=== PATIENT | male | born 1980 | race Caucasian/White ===

== ENCOUNTER 2016-07-28 15:22 | Emergency (ER) | payer SELFPAY ==
--- NOTE | 2016-07-28 17:40 | ED CLINICAL REPORT ---
Clinical Report - Physicians/Mid Levels [facility] [address] [place] [address] 07/28/2016 15:24 [id number] Arrived- By private vehicle. Historian- patient. HISTORY OF PRESENT ILLNESS Chief Complaint: fatigue. This started 1 month ago and is still present but is better now. It was gradual in onset and has been constant but is not gone now. The illness is described as moderate. The patient has had a cough (improved). No fever or chills. (generalized fatigue, decreased appetite, generalized weakness). Additional history - No known contact with a sick individual. Similar symptoms previously: None. Recent medical care: Not recently seen/assessed. REVIEW OF SYSTEMS The patient has had a headache. No pedal edema or calf pain. All systems otherwise negative, except as recorded above. PAST HISTORY See nurses notes. SOCIAL HISTORY Smoker- current status unknown. No alcohol use or drug use. Is a local resident. ADDITIONAL NOTES The nursing notes have been reviewed. PHYSICAL EXAM Vital Signs: 07/28/2016 15:33 BP: 133/96. HR: 113. RR: 18. O2 saturation: 96%. Temp: 97.6 F. Blood pressure normal. Oxygen saturation normal. Appearance: Alert. No acute distress. Eyes: Pupils equal, round and reactive to light. Eyes normal inspection. ENT: Ears normal. Nose normal. Pharynx normal. Uvula midline. Neck: Normal inspection. Neck supple. No meningeal signs. CVS: Normal heart rate and rhythm. Heart sounds normal. Pulses normal. Respiratory: No respiratory distress. Breath sounds normal. No rales, rhonchi, wheezes or stridor. Abdomen: Soft and nontender. No organomegaly. Back: Normal inspection. Skin: Skin warm and dry. Normal skin color. No rash. Normal skin turgor. Extremities: Extremities exhibit normal ROM. No lower extremity edema. Neuro: Oriented X 3. No motor deficit. No sensory deficit. LABS, X-RAYS, AND EKG Laboratory Tests: CBC w Diff: (RD: 07/28/2016 16:05) ( MsgRcvd 07/28/2016 16:21) Final results Test Result Flag Units (Reference) WHITE BLOOD COUNT 7.4 K/uL (4.5-11.5) RED BLOOD COUNT 5.01 M/uL (4.50-5.90) HEMOGLOBIN 15.1 gm/dL (13.5-17.5) HEMATOCRIT 44.8 % (41.0-53.0) MEAN CELL VOLUME 89 fL (80-100) MEAN CORPUSCULAR HGB 30 pg (26-34) MEAN CORPUSCULAR HGB CONC 34 g/dL (31-37) RED CELL DISTRIBUTION WIDTH 12.0 % (11.6-14.8) PLATELET COUNT 285 K/uL (150-400) NEUTROPHIL % 69.2 % (50-75) LYMPH % 19.4 L % (25-40) MONO % 10.1 % (3-14) EOSINOPHIL % 0.9 % (0-4) BASOPHIL % 0.4 % (0-2) CMP: (RD: 07/28/2016 16:05) ( MsgRcvd 07/28/2016 16:43) Final results Test Result Flag Units (Reference) GLUCOSE 100 mg/dL (70-110) BUN 5 L mg/dL (7-18) CREATININE 0.6 mg/dL (0.6-1.3) Estimated GFR >60 mL/min Estimated GFR- >60 mL/min Note: Persistent reduction over 3 months in eGFR<60 mL/min/1.73 m2 defines CKD. Patients with eGFR values>=60 mL/min/1.73 m2 may also have CKD if evidence ofpersistent proteinuria. Additional information may be foundat www.kidney.org. SODIUM 139 mmol/L (136-145) POTASSIUM 3.3 L mmol/L (3.5-5.1) CHLORIDE 103 mmol/L (98-107) CARBON DIOXIDE 25 mmol/L (21-32) CALCIUM 8.9 mg/dL (8.5-10.1) TOTAL PROTEIN 8.0 g/dL (6.4-8.2) ALBUMIN 4.0 g/dL (3.3-5.0) BILIRUBIN, TOTAL 0.5 mg/dL (0.0-1.0) ALKALINE PHOSPHATASE 90 U/L (46-116) AST (SGOT) 78 H U/L (15-37) ALT (SGPT) 255 H U/L (12-78) THYROID STIMULATING HORMONE 0.575 uIU/mL (0.34-3.74) . PROGRESS AND PROCEDURES Course of Care: the patient is a 36-year-old male with no past medical history presenting for evaluation of several medical concerns. Had long discussion with patient in regards to his workup here in the emergency Department incapabilities here. Had discussion with patient in regards to imaging and laboratory studies. Patient declined offers for imaging secondary to cost. Explained to patient that I was here for his medical concerns only and would happily order the test if he was agreeable to them. Patient reports that his symptoms of cough have essentially gone away at this point in time and does not feel that he wants them at this point in time. Patient was agreeable to laboratory studies. Discussed with patient workup which she was agreeable to. Patient otherwise is nontoxic in appearance. do not the patient has subarachnoid hemorrhage, increased intracranial pressure, or meningitis. Symptoms have been ongoing for about a month. Differential diagnosis includes hypoglycemia, anemia, hypothyroidism the patient's laboratory studies were remarkable for elevation in liver enzymes that was mild in nature. Patient could have been exposed to a virus that is been causing liver injury. Expressed my concern for patient's laboratory studies and need for outpatient follow-up. Patient is agreeable to following up with his liver enzymes. No other abnormalities noted. Hemoglobin and hematocrit are otherwise unremarkable. Thyroid is also noted to be negative. I discussed the patient workup, diagnosis, home care, follow-up, and return precautions. All questions answered. The patient expressed understanding of these instructions and was agreeable to them. Disposition: Discharged. Condition: good. CLINICAL IMPRESSION 07/28/2016 15:33 BP: 133/96. HR: 113. RR: 18. O2 saturation: 96%. Temp: 97.6 F. Blood pressure normal. Oxygen saturation normal. Acute viral syndrome Hypokalemia (acute mild). acute transaminitis, mild. INSTRUCTIONS (Avoid products containing Tylenol.). Warnings: Further evaluation is necessary in order to recheck abnormal lab (Liver enzymes need to be checked). It is very important to follow up with a physician. GENERAL WARNINGS: Return or contact your physician immediately if your condition worsens or changes unexpectedly, if not improving as expected, or if other problems arise. Specifically return if pain, vomiting, bleeding, breathing difficulty or fever. Your Current Medications: CONTINUE TAKING THE FOLLOWING MEDICATIONS: None*. Prescription Medications: Zofran 4 mg: take 1 orally every 8 hours as needed for nausea and vomiting. Dispense ten (10). No refill. Substitution is permissible. Follow-up: Return to the emergency department as needed. Follow up with your doctor in three days. Reason for referral: recheck today's concerns. Summary of care provided to patient via paper. Screening today revealed the patient's blood pressure to be in the normal range. The patient should follow up with a primary care provider for blood pressure management. Understanding of the discharge instructions verbalized by patient. (Electronically signed by Darshan Mccarty Dr. 07/31/2016 18:05)
--- NOTE | 2016-07-28 17:40 | ED ORDER SUMMARY ---
..... Patient: NOEMI LUCIANO OrderSheet [facility] VisitID: [id number] [address] [place] [address] 36y, M Registration Date/Time: 07/28/2016 ORDER SHEET Weight: 87.0 kg (stated) Allergies: No Known Drug Allergy GENERAL ORDERS: CBC w Diff Urgent (15:53 07/28/2016 Angel Carbajal) (Ack 15:59 LNations ER Tech1) CMP Urgent (15:53 07/28/2016 Angel Carbajal) (Ack 15:59 LNations ER Tech1) TSH Urgent (15:53 07/28/2016 Angel Carbajal) (Ack 15:59 LNations ER Tech1) MEDICATION ORDERS: IV FLUIDS: ORDER SHEET NOTES: [Electronically signed by Bonilla Ochoa R.N. (17:55 07/28/2016)] [Electronically signed by Darshan Mccarty Dr. (18:05 07/31/2016)] [Electronically locked/signed by Bonilla Ochoa R.N. (17:55 07/28/2016)]
--- NOTE | 2016-07-28 17:40 | ED NURSING NOTES ---
Clinical Report - Nurses [facility] [address] [place] [address] 07/28/2016 15:24 [id number] TRI[facility] Triage time 15:33 Jul 28 2016. Acuity: LEVEL 3. Chief Complaint: FEVER, CHILLS, MUSCLE ACHES, HEADACHE, WEAKNESS, NAUSEA and DIARRHEA. --15:37 Bonilla Ochoa R.N. 15:33 07/28/16. BP: 133/96. HR: 113. RR: 18. O2 saturation: 96%. Temp: 97.6 F. Pain level now 0/10. --15:37 Bonilla Ochoa R.N. Weight: 87 kg stated. Height/Length: 65 inches Per Patient. BMI: 32. --15:36 Bonilla Ochoa R.N. Medications None. --15:36 Bonilla Ochoa R.N. Allergies No Known Drug Allergy. --15:36 Bonilla Ochoa R.N. History Arrived by private vehicle. ( Pt "self diagnosed "with flu since the . Pt is reporting multiple symptoms worse being lack of appetite). SOCIAL HX: Never smoker. No alcohol use or drug use. --15:37 Bonilla Ochoa R.N. Interventions ID band on patient. To treatment room. --15:37 Bonilla Ochoa R.N. PHYSICAL ASSESSMENT GENERAL / NEURO / PSYCH: Alert. Oriented X 4. Appears in no acute distress. HEENT: Pupils equal, round and reactive to light. No facial asymmetry noted. Mucous membranes are pink. RESPIRATORY: Respirations not labored. Chest nontender. Breath sounds within normal limits. CVS: Pulses within normal limits. GI / : Abdomen soft. SKIN: Skin is warm and dry. --15:37 Bonilla Ochoa R.N. NURSING PROGRESS NOTES Oxygen not administered. Pulse oximeter placed on patient. Patient not gowned. Call light placed in reach. Side rails up x 1. Bed placed in lowest position. --15:37 Bonilla Ochoa R.N. DISPOSITION / DISCHARGE Departure time: 1750. No learning barriers present. Discharge instructions provided and reviewed with the patient. Reviewed warnings. Reviewed medication(s). Treatments reviewed. Reviewed referrals. Patient verbalized understanding. Written instructions provided in Slovak. The patient was discharged by the physician. He was discharged home. He left the Emergency Department ambulatory and via private vehicle. Patient driving. --17:51 Bonilla Ochoa R.N. 17:50 07/28/16. BP: 128/85. HR: 108. RR: 18. O2 saturation: 99%. Temp: 98.6 F. Pain level now 0/10. --17:51 Bonilla Ochoa R.N. Locked/Released at 07/28/2016 17:55 by Bonilla Ochoa R.N.
--- NOTE | 2016-07-28 17:40 | ED ORDER SUMMARY ---
..... Patient: NOEMI LUCIANO OrderSheet [facility] VisitID: [id number] [address] [place] [address] 36y, M Registration Date/Time: 07/28/2016 ORDER SHEET Weight: 87.0 kg (stated) Allergies: No Known Drug Allergy GENERAL ORDERS: CBC w Diff Urgent (15:53 07/28/2016 Angel Carbajal) (Ack 15:59 LNations ER Tech1) CMP Urgent (15:53 07/28/2016 Angel Carbajal) (Ack 15:59 LNations ER Tech1) TSH Urgent (15:53 07/28/2016 Angel Carbajal) (Ack 15:59 LNations ER Tech1) MEDICATION ORDERS: IV FLUIDS: ORDER SHEET NOTES: [Electronically signed by Bonilla Ochoa R.N. (17:55 07/28/2016)] [Electronically signed by Darshan Mccarty Dr. (18:05 07/31/2016)] [Electronically locked/signed by Bonilla Ochoa R.N. (17:55 07/28/2016)]
--- NOTE | 2016-07-28 17:40 | ED NURSING NOTES ---
Clinical Report - Nurses [facility] [address] [place] [address] 07/28/2016 15:24 [id number] TRIAGE Triage time 15:33 Jul 28 2016. Acuity: LEVEL 3. Chief Complaint: FEVER, CHILLS, MUSCLE ACHES, HEADACHE, WEAKNESS, NAUSEA and DIARRHEA. --15:37 Bonilla Ochoa R.N. 15:33 07/28/16. BP: 133/96. HR: 113. RR: 18. O2 saturation: 96%. Temp: 97.6 F. Pain level now 0/10. --15:37 Bonilla Ochoa R.N. Weight: 87 kg stated. Height/Length: 65 inches Per Patient. BMI: 32. --15:36 Bonilla Ochoa R.N. Medications None. --15:36 Bonilla Ochoa R.N. Allergies No Known Drug Allergy. --15:36 Bonilla Ochoa R.N. History Arrived by private vehicle. ( Pt "self diagnosed "with flu since the . Pt is reporting multiple symptoms worse being lack of appetite). SOCIAL HX: Never smoker. No alcohol use or drug use. --15:37 Bonilla Ochoa R.N. Interventions ID band on patient. To treatment room. --15:37 Bonilla Ochoa R.N. PHYSICAL ASSESSMENT GENERAL / NEURO / PSYCH: Alert. Oriented X 4. Appears in no acute distress. HEENT: Pupils equal, round and reactive to light. No facial asymmetry noted. Mucous membranes are pink. RESPIRATORY: Respirations not labored. Chest nontender. Breath sounds within normal limits. CVS: Pulses within normal limits. GI / : Abdomen soft. SKIN: Skin is warm and dry. --15:37 Bonilla Ochoa R.N. NURSING PROGRESS NOTES Oxygen not administered. Pulse oximeter placed on patient. Patient not gowned. Call light placed in reach. Side rails up x 1. Bed placed in lowest position. --15:37 Bonilla Ochoa R.N. DISPOSITION / DISCHARGE Departure time: 1750. No learning barriers present. Discharge instructions provided and reviewed with the patient. Reviewed warnings. Reviewed medication(s). Treatments reviewed. Reviewed referrals. Patient verbalized understanding. Written instructions provided in Greenlandic. The patient was discharged by the physician. He was discharged home. He left the Emergency Department ambulatory and via private vehicle. Patient driving. --17:51 Bonilla Ochoa R.N. 17:50 07/28/16. BP: 128/85. HR: 108. RR: 18. O2 saturation: 99%. Temp: 98.6 F. Pain level now 0/10. --17:51 Bonilla Ochoa R.N. Locked/Released at 07/28/2016 17:55 by Bonilla Ochoa R.N.
--- NOTE | 2016-07-31 18:05 | ED DISCHARGE INSTRUCTIONS ---
Patient: NOEMI LUCIANO General Instructions [facility] VisitID: [id number] [place] [address] 36y, M Registration Date/Time: 07/28/2016 07/28/2016 15:33 BP: 133/96. HR: 113. RR: 18. O2 saturation: 96%. Temp: 97.6 F. Blood pressure normal. Oxygen saturation normal. Acute viral syndrome Hypokalemia (acute mild). acute transaminitis, mild. INSTRUCTIONS (Avoid products containing Tylenol.). Warnings: Further evaluation is necessary in order to recheck abnormal lab (Liver enzymes need to be checked). It is very important to follow up with a physician. GENERAL WARNINGS: Return or contact your physician immediately if your condition worsens or changes unexpectedly, if not improving as expected, or if other problems arise. Specifically return if pain, vomiting, bleeding, breathing difficulty or fever. Your Current Medications: CONTINUE TAKING THE FOLLOWING MEDICATIONS: None*. Prescription Medications: Zofran 4 mg: take 1 orally every 8 hours as needed for nausea and vomiting. Dispense ten (10). No refill. Substitution is permissible. Follow-up: Return to the emergency department as needed. Follow up with your doctor in three days. Reason for referral: recheck today's concerns. Summary of care provided to patient via paper. Screening today revealed the patient's blood pressure to be in the normal range. The patient should follow up with a primary care provider for blood pressure management. Understanding of the discharge instructions verbalized by patient. ADDITIONAL INFORMATION Viral Syndrome (Adult) A viral illness may cause a number of symptoms. The symptoms depend on the part of the body that the virus affects. If it settles in the nose, throat, and lungs, it may cause cough, sore throat, congestion, and sometimes headache. If it settles in the stomach and intestinal tract, it may cause vomiting and diarrhea. Sometimes it causes vague symptoms like "aching all over," feeling tired, loss of appetite, or fever. A viral illness usually lasts1 to 2 weeks, but sometimes it lasts longer. In some cases, a more serious infection can look like a viral syndrome in the first few days of the illness. You may need anotherexam and additional teststo know the difference.Watch for the warning signs listed below. Home care Follow these guidelines for taking care of yourself at home: If symptoms are severe, rest at home for the first 2 to 3 days. Stay away from cigarette smoke - both your smoke and the smoke from others. You may useacetaminophen or ibuprofen for fever, muscle aching, and headache, unless another medicine was prescribed for this.If you have chronic liver or kidney disease or ever had a stomach ulcer or GI bleeding, talk with your doctor before using these medicinesNo one who is younger than 18 and ill with a fever should take aspirin. It may cause severe liver damage. Your appetite may be poor, so a light diet is fine. Avoid dehydration by drinking 8 to 12 8-ounce glasses of fluids each day. This may include water; orange juice; lemonade; apple, grape, and cranberry juice; clear fruit drinks; electrolyte replacement and sports drinks; and decaffeinated teas and coffee. If you have been diagnosed with a kidney disease, ask your doctor how much and what types of fluids you should drink to prevent dehydration. If you have kidney disease, drinking too much fluid can cause it build up in the your body and be dangerous to your health. Jfzw-mig-jtlbycr remedies won't shorten the length of the illness but may be helpful forcough, sore throat; and nasal and sinus congestion. Don't use decongestants if you have high blood pressure. Follow-up care Follow up with your health care provider if you do not improve over the next week. When to seek medical care Get prompt medical attention if any of these occur: Cough with lots of colored sputum (mucus) or blood in your sputum Chest pain, shortness of breath, wheezing, or difficulty breathing Severe headache; face, neck, or ear pain Severe, constant pain in the lower right side of your belly (abdominal) Continued vomiting (cant keep liquids down) Frequent diarrhea (more than 5 times a day); blood (red or black color) or mucus in diarrhea Feeling weak, dizzy, or like you are going to faint Extreme thirst Fever of 100.4 F (38 C) oral or higher, not better with fever medication Convulsion Hypokalemia Hypokalemia means a low level of potassium in the blood. This most often occurs in patients who take diuretics (water pills). It can also occur due to severe vomiting or diarrhea. A mild case usually causes no symptoms. It is only found with blood testing. More severe potassium loss causes generalized weakness, muscle or abdominal cramping, heart palpitations (rapid or irregular heartbeats) and low blood pressure. Home Care: 1) Take any potassium supplements prescribed. 2) Eat foods rich in potassium. The highest amount is found in artichoke, baked potatoes, spinach, cantaloupe, honeydew melon, cod, halibut, salmon, and scallops. White, red, or zaidi beans are also very good sources. A modest amount is found in orange juice, bananas, carrots, and tomato juice. 3) Certain types of diuretics (water pills), such as Lasix (furosemide), require that you take potassium supplements for as long as you take the diuretic pills. If you are taking a diuretic, discuss the need for potassium supplements with your doctor. Follow Up with your doctor for a repeat blood test within the next week or as advised by our staff. Get Prompt Medical Attention if any of the following occur: -- Increased weakness -- Feeling dizzy -- Irregular heartbeat, extra beats or very fast heart rate -- Fainting spell Ondansetron Hydrochloride Oral tablet What is this medicine? ONDANSETRON (on ELVIA se yann) is used to treat nausea and vomiting caused by chemotherapy. It is also used to prevent or treat nausea and vomiting after surgery. How should I use this medicine? Take this medicine by mouth with a glass of water. Follow the directions on your prescription label. Take your doses at regular intervals. Do not take your medicine more often than directed. Talk to your software developer manager regarding the use of this medicine in children. Special care may be needed. What side effects may I notice from receiving this medicine? Side effects that you should report to your doctor or health workforce investment act career manager as soon as possible: allergic reactions like skin rash, itching or hives, swelling of the face, lips or tongue breathing problems dizziness fast or irregular heartbeat feeling faint or lightheaded, falls fever and chills swelling of the hands or feet tightness in the chest Side effects that usually do not require medical attention (report to your doctor or health workforce investment act career manager if they continue or are bothersome): constipation or diarrhea headache What may interact with this medicine? Do not take this medicine with any of the following medications: -apomorphine -cisapride -dofetilide -dronedarone -pimozide -thioridazine -ziprasidone This medicine may also interact with the following medications: -carbamazepine -phenytoin -rifampicin -tramadol -other medicines that prolong the QT interval (cause an abnormal heart rhythm) What if I miss a dose? If you miss a dose, take it as soon as you can. If it is almost time for your next dose, take only that dose. Do not take double or extra doses. Where should I keep my medicine? Keep out of the reach of children. Store between 2 and 30 degrees C (36 and 86 degrees F). Throw away any unused medicine after the expiration date. What should I tell my health care provider before I take this medicine? They need to know if you have any of these conditions: heart disease history of irregular heartbeat liver disease low levels of magnesium or potassium in the blood an unusual or allergic reaction to ondansetron, granisetron, other medicines, foods, dyes, or preservatives or trying to get breast-feeding What should I watch for while using this medicine? Check with your doctor or health workforce investment act career manager right away if you have any sign of an allergic reaction. You have been given the following additional information: Viral Syndrome (Adult) Hypokalemia Ondansetron Hydrochloride Oral tablet (Electronically signed by Darshan Mccarty Dr. 07/31/2016 18:05)
--- NOTE | 2016-07-31 18:05 | ED MAR SUMMARY ---
..... Medication Administration Record [facility] [address] [place], [place] [id number] Patient: NOEMI LUCIANO Visit ID: [id number] 36y, M Weight: 87.0 kg Height/Length: 65 in BMI: 32 ALLERGIES: No Known Drug Allergy
--- NOTE | 2016-07-31 18:05 | ED MED RECONCILIATION SUMMARY ---
Patient: NOEMI LUCIANO Medication Reconciliation Report [facility] VisitID: [id number] [address] [place] [address] 36y, M Registration Date/Time: 07/28/2016 Weight: 87.0 kg Height/Length: 65 in. BMI: 32.0 ALLERGIES: No Known Drug Allergy The patient's Home Medications are listed below: NONE. The source(s) of the original Home Medication information: Not obtained. The following Medications were given to the patient in the Emergency Department: None. The following Medications were prescribed to the patient: Zofran 4 mg: take 1 orally every 8 hours as needed for nausea and vomiting. Dispense ten (10). No refill. Substitution is permissible. -- Darshan Mccarty Dr.
--- NOTE | 2016-07-31 18:05 | ED MED RECONCILIATION SUMMARY ---
Patient: NOEMI LUCIANO Medication Reconciliation Report [facility] VisitID: [id number] [address] [place] [address] 36y, M Registration Date/Time: 07/28/2016 Weight: 87.0 kg Height/Length: 65 in. BMI: 32.0 ALLERGIES: No Known Drug Allergy The patient's Home Medications are listed below: NONE. The source(s) of the original Home Medication information: Not obtained. The following Medications were given to the patient in the Emergency Department: None. The following Medications were prescribed to the patient: Zofran 4 mg: take 1 orally every 8 hours as needed for nausea and vomiting. Dispense ten (10). No refill. Substitution is permissible. -- Darshan Mccarty Dr.
--- NOTE | 2016-07-31 18:05 | ED MAR SUMMARY ---
..... Medication Administration Record [facility] [address], [place] [id number] Patient: NOEMI LUCIANO Visit ID: [id number] 36y, M Weight: 87.0 kg Height/Length: 65 in BMI: 32 ALLERGIES: No Known Drug Allergy
== END 2016-07-28 17:50 | disposition home or self-care (01) ==
LOC: ED SRH 15:22
DX: R74.0 Nonspecific elevation of levels of transaminase and lactic acid dehydrogenase [LDH] (principal); B34.9 Viral infection, unspecified; E87.6 Hypokalemia
CPT/HCPCS: 90100; 93140; 95059